=== PATIENT | male | born 1980 | race Two or more races ===

== ENCOUNTER 2018-06-02 10:14 | Inpatient (IN) | payer OTHER ==
[2018-06-02 10:20] VITALS: BMI 27.8
--- NOTE | 2018-06-02 11:32 | HP ---
CIWA Score Nausea/Vomitin Muscle Tremors: 2 Anxiety: 2 Agitation: 2 Paroxysmal Sweats: 1-Minimal Palms Moist Orientation: 0-Oriented Tacttile Disturbances: 1-Very Mild Itch/Numbness Auditory Disturbances: 1-Very Mild Visual Disturbances: 0-None Headache: 2-Mild CIWA-Ar Total Score: 13 - Admission Criteria [facility]ASAS Guidelines: Admission for Medically Managed Detox: Requires at least one of the followin. CIWA greater than 12 2. Seizures within the past 24 hours 3. Delirium tremens within the past 24 hours 4. Hallucinations within the past 24 hours 5. Acute intervention needed for co occurring medical disorder 6. Acute intervention needed for co occurring psychiatric disorder 7. Severe withdrawal that cannot be handled at a lower level of care (continued vomiting, continued diarrhea, abnormal vital signs) requiring intravenous medication and/or fluids 8. Patient presents the following: CIWA greater than 12 Admission Criteria Met: Admission criteria met Admission ROS S - [facility] Chief Complaint: i need help to stop using alcohol,heroin abused,cocaine and marijuana Allergies/Adverse Reactions: Allergies Allergy/AdvReac Type Severity Reaction Status Date / Time haloperidol [From Haldol] Allergy Severe Verified 06/02/18 11:24 olanzapine [From Zyprexa] Allergy Severe Verified 06/02/18 11:24 History of Present Illness: this 28 years old male with alcohol dependence,heroin abused,cocaine and marijuana dependence,seeking detox,withdrawal symptom, last seen in [facility] er last night last detox [facility] in 05/01 multiple admissions in detox nicotine dependence 10 cigarette/day bipolar 1 disorder old fx left femur in 2007 longest period of sobriety 3 years low back pain plan for rehab after detox Exam Limitations: No Limitations - Ebola screening Have you traveled outside of the country in the last 21 days: No Have you had contact with anyone from an Ebola affected area: No Have you been sick,other than usual withdrawal symptoms: No - Review of Systems Constitutional: Chills, Loss of Appetite, Malaise, Night Sweats, Changes in sleep, Weakness EENT: reports: Tearing, Nose Congestion Respiratory: reports: No Symptoms reported Cardiac: reports: No Symptoms Reported GI: reports: Nausea, Poor Appetite, Vomiting, Abdominal cramping : reports: No Symptoms Reported Musculoskeletal: reports: Back Pain, Joint Pain, Muscle Pain, Joint Stiffness Integumentary: reports: Dryness Neuro: reports: Headache, Tremors Endocrine: reports: No Symptoms Reported Hematology: reports: No Symptoms Reported Psychiatric: reports: No Sypmtoms Reported, Judgement Intact, Mood/Affect Appropiate, Orientated x3, other (bipolar disorder) Other Systems: Reviewed and Negative Patient History - Patient Medical History Hx Anemia: No Hx Asthma: No Hx Chronic Obstructive Pulmonary Disease (COPD): No Hx Cancer: No Hx Cardiac Disorders: No Hx Congestive Heart Failure: No Hx Hypertension: No Hx Hypercholesterolemia: No Hx Pacemaker: No HX Cerebrovascular Accident: No Hx Seizures: No Hx Dementia: No Hx Diabetes: No Hx Liver Disease: No Hx Genitourinary Disorders: No Hx Sexually Transmitted Disorders: No Hx Renal Disease (ESRD): No Hx Thyroid Disease: No Hx Human Immunodeficiency Virus (HIV): No (last 06/01 negative) Hx Hepatitis C: No Hx Depression: No Hx Suicide Attempt: No Hx Bipolar Disorder: Yes (onmeds) Hx Schizophrenia: No Other Medical History: no suicidal,no homicidal - Patient Surgical History Past Surgical History: No - PPD History Previous Implant?: Yes Documented Results: Negative w/o proof Implanted On Prior [facility] Admission?: No PPD to be Administered?: Yes - Smoking Cessation Smoking history: Current every day smoker Have you smoked in the past 12 months: Yes Aproximately how many cigarettes per day: 10 Cigars Per Day: 0 Hx Chewing Tobacco Use: No Initiated information on smoking cessation: Yes 'Breaking Loose' booklet given: 06/02/18 - Substance & Tx. History Hx Alcohol Use: Yes Hx Substance Use: Yes Substance Use Type: Alcohol, Cocaine, Heroin, Marijuana Hx Substance Use Treatment: Yes ([facility] 05/01) - Substances Abused Alcohol Route: Oral Frequency: Daily Amount used: 8-9 24 OZ MALT LIQUOR Age of first use: 15 Date of Last Use: 06/02/18 Cocaine Route: Injection Frequency: 1-2 times per week Amount used: $100 Age of first use: 21 Date of Last Use: 06/01/18 Heroin Route: Injection Frequency: 3-6 times per week Amount used: 2 BAGS Age of first use: 38 Date of Last Use: 05/30/18 Family Disease History - Family Disease History Family History: Denies Admission Physical Exam [facility] - Vital Signs Vital Signs: Vital Signs - 24 hr 02/20/19 10:18 Temperature 97.3 F L Pulse Rate 88 Respiratory 20 Rate Blood Pressure 132/76 - Physical General Appearance: Yes: Moderate Distress, Tremorous, Irritable, Sweating, Anxious HEENTM: Yes: Normal ENT Inspection, NERY, Pharynx Normal, Other (laceration of right face with stitches) Respiratory: Yes: Lungs Clear, Normal Breath Sounds, No Respiratory Distress Neck: Yes: Within Normal Limits, Supple, Trachea in good position Breast: Yes: Within Normal Limits Cardiology: Yes: Within Normal Limits, Regular Rhythm, Regular Rate, S1, S2 Abdominal: Yes: Within Normal Limits, Normal Bowel Sounds, Non Tender, Flat, Soft Genitourinary: Yes: Within Normal Limits Back: Yes: Muscle Spasm Musculoskeletal: Yes: full range of Motion, Back pain, Muscle Pain Extremities: Yes: Within Normal Limits, Normal Range of Motion, Tremors 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 NML intact, Fully Oriented, Alert, Motor Strength 5/5 Integumentary: Yes: Dry Lymphatic: Yes: Within Normal Limits - Diagnostic (1) Alcohol dependence with uncomplicated withdrawal Current Visit: Yes Status: Acute (2) Heroin abuse Current Visit: Yes Status: Acute (3) Cocaine dependence Current Visit: Yes Status: Acute (4) Cannabis dependence Current Visit: Yes Status: Acute (5) Bipolar disorder Current Visit: Yes Status: Acute (6) Nicotine dependence Current Visit: Yes Status: Acute (7) Laceration of face Current Visit: Yes Status: Acute Cleared for Admission [facility] - Detox or Rehab [facility] Level of Care: Medically Managed Detox Regimen/Protocol: Librium [facility] Breath Alcohol Content Breath Alcohol Content: 0.010 Urine Drug Screen - Results Drug Screen Negative: No Urine Drug Screen Results: THC-Marijuana, JOCELINE-Cocaine, BZO-Benzodiazepines, MTD- Methadone Inpatient Rehab Admission - Rehab Decision to Admit Inpatient rehab admission?: No
[2018-06-02] MEDS ORDERED: MAGNESIUM CITRATE 300 ML BOTTLE PO PRN (11:45)
[2018-06-02] MEDS ORDERED: MENTHOL/PHENOL 1 EACH UD MM PRN (11:45)
[2018-06-02] MEDS ORDERED: MAGNESIUM HYDROX 2400MG/30ML ORAL SUSPENSION 30 ML CUP PO PRN (11:45)
[2018-06-02] MEDS ORDERED: P-EPHED 60MG/TRIPROLIDI 2.5MG TABLET PO PRN (11:45)
[2018-06-02] MEDS ORDERED: guaiFENesin/D-METHORPHAN HB 10 ML UNIT-DOSE CUPS PO PRN (11:45)
[2018-06-02] MEDS ORDERED: NICOTINE POLACRILEX 2 MG GUM BC PRN (11:45)
[2018-06-02] MEDS ORDERED: hydrOXYzine PAMOATE 25 MG CAPSULE (FP) PO PRN (11:45)
[2018-06-02] MEDS ORDERED: chlordiazePOXIDE HCL 25 MG CAPSULE PO PRN (11:45)
[2018-06-02] MEDS ORDERED: MAG HYDROX/AL HYDROX/SIMETH 30 ML UNIT-DOSE CUP PO PRN (11:45)
[2018-06-02] MEDS ORDERED: LOPERAMIDE HCL 2 MG CAPSULE PO PRN (11:45)
[2018-06-02] MEDS ORDERED: ACETAMINOPHEN 325 MG TABLET (FP) PO PRN (11:45)
[2018-06-02] MEDS: CYCLOBENZAPRINE HCL 10 MG TABLET (FP) PO PRN ×2 (13:11→22:21)
[2018-06-02] MEDS: chlordiazePOXIDE HCL 25 MG CAPSULE PO SCH ×2 (17:53→22:21)
[2018-06-02] MEDS: IBUPROFEN 400 MG TABLET (FP) PO PRN (17:57)
[2018-06-02 20:53] LABS: URINE APPEARANCE TURBID; URINE BILIRUBIN NEGATIVE (<2.0 mg/dL); URINE COLOR YELLOW; URINE GLUCOSE (UA) NEGATIVE (NEGATIVE); URINE KETONE NEGATIVE (NEGATIVE); URINE LEUK ESTERASE NEGATIVE (NEGATIVE); URINE NITRITE NEGATIVE (NEGATIVE); URINE PROTEIN 1+ (NEGATIVE); URINE UROBILINOGEN NEGATIVE mg/dL (0.2-1.0)
[2018-06-02 21:08] LABS: EPI CELLS RARE /HPF (FEW); URINE BACTERIA RARE /hpf (NONE SEEN); URINE MUCUS FEW
[2018-06-02] MEDS: cloNIDine HCL 0.1 MG TABLET PO SCH (22:21)
[2018-06-02] MEDS: MELATONIN 5 MG TABLETS PO PRN (22:21)
[2018-06-02] MEDS: THIAMINE HCL 100 MG TABLET (FP) PO SCH (22:21)
--- NOTE | 2018-06-03 02:33 | EKG ---
Test Reason : Blood Pressure : / mmHG Vent. Rate : 074 BPM Atrial Rate : 074 BPM P-R Int : 124 ms QRS Dur : 086 ms QT Int : 388 ms P-R-T Axes : -01 -25 043 degrees QTc Int : 430 ms NORMAL SINUS RHYTHM NORMAL ECG NO PREVIOUS ECGS AVAILABLE Confirmed by PARTHA SHELL MD ([id number]) on 06/03/2018 2:33:26 AM Referred By: CHECO CÁRDENAS Confirmed By:PARTHA SHELL MD
[2018-06-03] MEDS: chlordiazePOXIDE HCL 25 MG CAPSULE PO SCH ×4 (05:16→22:12)
--- NOTE | 2018-06-03 09:10 | CONSULT ---
[facility] Psychiatric Consult - Data Date of interview: 06/03/18 Admission source: [facility] Identifying data: This is a 28 years old male, single father of one, homeless, unemployed, on PA support, with history of Bipolar Disorder, with psychiatric hospitalization hisatory, with alcohol dependence,heroin abused,cocaine and marijuana dependence,is reporting withdrawal symptoms and seeking detox, Substance Abuse History: Smoking history: Current every day smoker. Have you smoked in the past 12 months: Yes. Aproximately how many cigarettes per day: 10. Cigars Per Day: 0. Hx Chewing Tobacco Use: No. Initiated information on smoking cessation: Yes. 'Breaking Loose' booklet given: 06/02/18. - Substance & Tx. History. Hx Alcohol Use: Yes. Hx Substance Use: Yes. Substance Use Type : Alcohol, Cocaine, Heroin, Marijuana. Hx Substance Use Treatment: Yes ([facility] 05/01). - Substances Abused. Alcohol. Route: Oral. Frequency: Daily. Amount used: 8-9 24 OZ MALT LIQUOR. Age of first use: 15. Date of Last Use: 06/02/18. Cocaine. Route: Injection. Frequency: 1-2 times per week. Amount used: $100. Age of first use: 21. Date of Last Use: 06/01/18. * * Heroin. Route: Injection. Frequency: 3-6 times per week. Amount used: 2 BAGS. Age of first use: 38. Date of Last Use: 05/30/18 Medical History: LBP, History of L. Femoral fracture Psychiatric History: Patient reports history of Bipolar Disorder with the most recent psychiatric admission on about 5 years ago, denies suicidal and homicdial history, reports currently stable on: Lamictal 150mg poqd. Prozac 60mg poqd. Seroquel 200mg po qhs Physical/Sexual Abuse/Trauma History: Denies Additional Comment: Lamictal 150mg poqd. Prozac 60mg poqd. Seroquel 200mg po qhs Mental Status Exam - Mental Status Exam Alert and Oriented to: Person Cognitive Function: Fair Patient Appearance: Well Groomed Mood: Apprehensive Affect: Mood Congruent Patient Behavior: Cooperative Speech Pattern: Appropriate Voice Loudness: Normal Thought Process: Goal Oriented Thought Disorder: Being Controlled Hallucinations: Denies Suicidal Ideation: Denies Homicidal Ideation: Denies Insight/Judgement: Fair Sleep: Difficulty falling asleep Appetite: Fair Muscle strength/Tone: Normal Gait/Station: Normal Additional Comments: Lamictal 150mg poqd. Prozac 60mg poqd. Seroquel 200mg po qhs Psychiatric Findings - Problem List ([place] 1, 2,3) (1) Drug-induced mood disorder Current Visit: Yes Status: Acute (2) Alcohol dependence with uncomplicated withdrawal Current Visit: Yes Status: Acute (3) Bipolar disorder Current Visit: Yes Status: Acute (4) Cannabis dependence Current Visit: Yes Status: Acute (5) Cocaine dependence Current Visit: Yes Status: Acute (6) Heroin abuse Current Visit: Yes Status: Acute (7) Nicotine dependence Current Visit: Yes Status: Acute - Initial Treatment Plan Initial Treatment Plan: Lamictal 150mg poqd. Prozac 60mg poqd. Seroquel 200mg po qhs
[2018-06-03] MEDS ORDERED: PATIENT'S OWN MEDICATION (NON-FORMULARY) (Lamotrigine [Lamictal] 150 MG) PO SCH (10:00)
[2018-06-03] MEDS ORDERED: LAMOTRIGINE 100 MG, LAMOTRIGINE 50 MG PO ONE (10:15)
[2018-06-03] MEDS: cloNIDine HCL 0.1 MG TABLET PO SCH ×2 (10:34→22:15)
[2018-06-03] MEDS: PRENATAL VITAMINS W/ FOLIC ACID TABLET (FP) PO SCH (10:34)
[2018-06-03 10:39] LABS: HEMATOCRIT 46.5 % (35.4-49); HEMOGLOBIN 15.5 GM/dL (11.7-16.9); MCH 29.5 pg (25.7-33.7); MCHC 33.3 g/dl (32.0-35.9); MEAN CELL VOLUME 88.5 fl (80-96); PLATELET COUNT 314 K/MM3 (134-434); RBC 5.26 M/mm3 (4.00-5.60); RDW 14.1 % (11.9-15.9); WHITE BLOOD COUNT 8.3 K/mm3 (4.0-10.0)
[2018-06-03] MEDS: NICOTINE 21 MG/24 HOURS TOPICAL PATCH TD SCH (11:00)
[2018-06-03 11:44] LABS: ALBUMIN 4.6 g/dl (3.4-5.0); ALK PHOS 76 U/L (45-117); ANION GAP 6 MMOL/L (8-16); BILIRUBIN,TOTAL 0.5 mg/dL (0.2-1); BLOOD UREA NITROGEN 11 mg/dL (7-18); CALCIUM 9.4 mg/dL (8.5-10.1); CHLORIDE 104 mmol/L (98-107); CO2 28 mmol/L (21-32); CREATININE 0.8 mg/dL (0.55-1.3); GLUCOSE,RANDOM 74 mg/dL (74-106); POTASSIUM 4.2 mmol/L (3.5-5.1); SGOT/AST 21 U/L (15-37); SGPT/ALT 32 U/L (13-61); SODIUM 139 mmol/L (136-145)
[2018-06-03] MEDS: FLUoxetine HCL 20 MG CAPSULE (FP) PO SCH (12:13)
--- NOTE | 2018-06-03 12:52 | PN ---
[facility] CIWA - CIWA Score Nausea/Vomitin-No Nausea/No Vomiting Muscle Tremors: 4-Moderate,w/Arms Extend Anxiety: 4-Mod. Anxious/Guarded Agitation: 4-Moderately Restless Paroxysmal Sweats: 3 Orientation: 0-Oriented Tacttile Disturbances: 0-None Auditory Disturbances: 1-Very Mild Visual Disturbances: 1-Very Mild Sensitivity Headache: 0-None Present CIWA-Ar Total Score: 17 B[facility] Progress Note (SOAP) Subjective: Sweating, Tremors, Anxious. Objective: PATIENT A & O X 3, OBSERVED AMBULATING ON UNIT. IN NO ACUTE DISTRESS. 06/03/18 12:49 Vital Signs Temperature 97.9 F 06/03/18 09:16 Pulse Rate 79 06/03/18 09:16 Respiratory Rate 16 06/03/18 09:16 Blood Pressure 122/72 06/03/18 09:16 O2 Sat by Pulse Oximetry (%) Laboratory Tests 06/02/18 06/02/18 06/03/18 06:24 18:59 06:24 WBC 8.3 RBC 5.26 Hgb 15.5 Hct 46.5 MCV 88.5 MCH 29.5 MCHC 33.3 RDW 14.1 Plt Count 314 MPV 7.0 L Sodium Potassium Chloride Carbon Dioxide Anion Gap BUN Creatinine Creat Clearance w eGFR Random Glucose Calcium Total Bilirubin AST ALT Alkaline Phosphatase Total Protein Albumin Urine Color Yellow Urine Appearance Turbid Urine pH 5.0 Ur Specific [place] 1.029 Urine Protein 1+ H Urine Glucose (UA) Negative Urine Ketones Negative Urine Blood Negative Urine Nitrite Negative Urine Bilirubin Negative Urine Urobilinogen Negative Ur Leukocyte Esterase Negative Urine WBC (Auto) 4 Urine RBC (Auto) 5 Ur Epithelial Cells Rare Urine Bacteria Rare Urine Mucus Few RPR Titer HIV 1&2 Antibody Screen Negative HIV P24 Antigen Negative 06/03/18 06/03/18 06:24 06:24 WBC RBC Hgb Hct MCV MCH MCHC RDW Plt Count MPV Sodium 139 Potassium 4.2 Chloride 104 Carbon Dioxide 28 Anion Gap 6 L BUN 11 Creatinine 0.8 Creat Clearance w eGFR > 60 Random Glucose 74 Calcium 9.4 Total Bilirubin 0.5 AST 21 ALT 32 Alkaline Phosphatase 76 Total Protein 8.0 Albumin 4.6 Urine Color Urine Appearance Urine pH Ur Specific [place] Urine Protein Urine Glucose (UA) Urine Ketones Urine Blood Urine Nitrite Urine Bilirubin Urine Urobilinogen Ur Leukocyte Esterase Urine WBC (Auto) Urine RBC (Auto) Ur Epithelial Cells Urine Bacteria Urine Mucus RPR Titer Nonreactive HIV 1&2 Antibody Screen HIV P24 Antigen LABS NOTED. 06/03/18 12:51 Assessment: 06/03/18 12:50 WITHDRAWAL SYMPTOMS. Plan: CONTINUE DETOX.
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
[2018-06-03] MEDS: CYCLOBENZAPRINE HCL 10 MG TABLET (FP) PO PRN (17:26)
[2018-06-03] MEDS: IBUPROFEN 400 MG TABLET (FP) PO PRN (19:57)
[2018-06-03] MEDS: MELATONIN 5 MG TABLETS PO PRN (22:13)
[2018-06-03] MEDS: THIAMINE HCL 100 MG TABLET (FP) PO SCH (22:13)
[2018-06-03] MEDS: QUEtiapine FUMARATE 200 MG TABLET PO SCH (22:13)
[2018-06-04] MEDS: chlordiazePOXIDE HCL 25 MG CAPSULE PO SCH ×2 (05:30→10:32)
[2018-06-04] MEDS: CYCLOBENZAPRINE HCL 10 MG TABLET (FP) PO PRN ×2 (05:31→22:47)
[2018-06-04] MEDS: FLUoxetine HCL 20 MG CAPSULE (FP) PO SCH (10:32)
[2018-06-04] MEDS: cloNIDine HCL 0.1 MG TABLET PO SCH ×2 (10:32→22:47)
[2018-06-04] MEDS: PRENATAL VITAMINS W/ FOLIC ACID TABLET (FP) PO SCH (10:32)
[2018-06-04] MEDS: NICOTINE 21 MG/24 HOURS TOPICAL PATCH TD SCH (10:33)
[2018-06-04] MEDS: LAMOTRIGINE 100 MG, LAMOTRIGINE 50 MG PO SCH (10:34)
--- NOTE | 2018-06-04 11:28 | PN ---
S CIWA - CIWA Score Nausea/Vomitin Muscle Tremors: 2 Anxiety: 2 Agitation: 1-Slight > Activity Paroxysmal Sweats: 2 Orientation: 0-Oriented Tacttile Disturbances: 1-Very Mild Itch/Numbness Auditory Disturbances: 0-None Visual Disturbances: 0-None Headache: 0-None Present CIWA-Ar Total Score: 10 S Progress Note (SOAP) Subjective: interrupted sleep, sweats, , lbp Objective: 06/04/18 11:24 pt aox3 lying in bed in nad rt face , sutures in place no redness, w/o d/c or swelling 06/04/18 11:29 Vital Signs Temperature 97.0 F L 06/04/18 08:48 Pulse Rate 81 06/04/18 08:48 Respiratory Rate 18 06/04/18 08:48 Blood Pressure 115/64 06/04/18 08:48 O2 Sat by Pulse Oximetry (%) Laboratory Tests 06/02/18 06/02/18 06/03/18 06:24 18:59 06:24 WBC 8.3 RBC 5.26 Hgb 15.5 Hct 46.5 MCV 88.5 MCH 29.5 MCHC 33.3 RDW 14.1 Plt Count 314 MPV 7.0 L Sodium Potassium Chloride Carbon Dioxide Anion Gap BUN Creatinine Creat Clearance w eGFR Random Glucose Calcium Total Bilirubin AST ALT Alkaline Phosphatase Total Protein Albumin Urine Color Yellow Urine Appearance Turbid Urine pH 5.0 Ur Specific [place] 1.029 Urine Protein 1+ H Urine Glucose (UA) Negative Urine Ketones Negative Urine Blood Negative Urine Nitrite Negative Urine Bilirubin Negative Urine Urobilinogen Negative Ur Leukocyte Esterase Negative Urine WBC (Auto) 4 Urine RBC (Auto) 5 Ur Epithelial Cells Rare Urine Bacteria Rare Urine Mucus Few RPR Titer HIV 1&2 Antibody Screen Negative HIV P24 Antigen Negative 06/03/18 06/03/18 06:24 06:24 WBC RBC Hgb Hct MCV MCH MCHC RDW Plt Count MPV Sodium 139 Potassium 4.2 Chloride 104 Carbon Dioxide 28 Anion Gap 6 L BUN 11 Creatinine 0.8 Creat Clearance w eGFR > 60 Random Glucose 74 Calcium 9.4 Total Bilirubin 0.5 AST 21 ALT 32 Alkaline Phosphatase 76 Total Protein 8.0 Albumin 4.6 Urine Color Urine Appearance Urine pH Ur Specific [place] Urine Protein Urine Glucose (UA) Urine Ketones Urine Blood Urine Nitrite Urine Bilirubin Urine Urobilinogen Ur Leukocyte Esterase Urine WBC (Auto) Urine RBC (Auto) Ur Epithelial Cells Urine Bacteria Urine Mucus RPR Titer Nonreactive HIV 1&2 Antibody Screen HIV P24 Antigen Assessment: 06/04/18 11:25 withdrawal sx's lbp facial sutures on rt Plan: cont. detox increase fluids cont. analgesia for lbp
[2018-06-04] MEDS: chlordiazePOXIDE 5 MG CAPSULE PO SCH ×2 (17:17→22:47)
[2018-06-04] MEDS: IBUPROFEN 400 MG TABLET (FP) PO PRN (19:18)
[2018-06-04] MEDS: QUEtiapine FUMARATE 200 MG TABLET PO SCH (22:47)
[2018-06-04] MEDS: THIAMINE HCL 100 MG TABLET (FP) PO SCH (22:47)
[2018-06-05] MEDS: chlordiazePOXIDE 5 MG CAPSULE PO SCH ×2 (05:36→10:28)
[2018-06-05] MEDS: LAMOTRIGINE 100 MG, LAMOTRIGINE 50 MG PO SCH (10:27)
[2018-06-05] MEDS: FLUoxetine HCL 20 MG CAPSULE (FP) PO SCH (10:27)
[2018-06-05] MEDS: cloNIDine HCL 0.1 MG TABLET PO SCH ×2 (10:27→22:07)
[2018-06-05] MEDS: PRENATAL VITAMINS W/ FOLIC ACID TABLET (FP) PO SCH (10:27)
[2018-06-05] MEDS: NICOTINE 21 MG/24 HOURS TOPICAL PATCH TD SCH (10:28)
--- NOTE | 2018-06-05 13:08 | PN ---
[facility] Progress Note (SOAP) Subjective: C/O SLIGHT ANXIETY OTHERWISE W/S RESOLVING. SCHEDULED TO D/C IN A.M AND WANTS TO LEAVE AT 8:00 TOMORROW MORNING. Objective: 06/05/18 13:07 Vital Signs - 24 hr 06/04/18 06/04/18 06/04/18 13:40 17:34 22:00 Temperature 98.2 F 98.1 F 97.8 F Pulse Rate 84 81 75 Respiratory 16 18 18 Rate Blood Pressure 140/67 136/66 151/94 06/05/18 06/05/18 06/05/18 00:30 03:30 06:00 Temperature 97.7 F Pulse Rate 67 Respiratory 17 18 18 Rate Blood Pressure 123/62 06/05/18 09:57 Temperature 97.2 F L Pulse Rate 75 Respiratory 18 Rate Blood Pressure 121/70 Laboratory Tests 06/02/18 06/02/18 06/03/18 06:24 18:59 06:24 WBC 8.3 RBC 5.26 Hgb 15.5 Hct 46.5 MCV 88.5 MCH 29.5 MCHC 33.3 RDW 14.1 Plt Count 314 MPV 7.0 L Sodium Potassium Chloride Carbon Dioxide Anion Gap BUN Creatinine Creat Clearance w eGFR Random Glucose Calcium Total Bilirubin AST ALT Alkaline Phosphatase Total Protein Albumin Urine Color Yellow Urine Appearance Turbid Urine pH 5.0 Ur Specific [place] 1.029 Urine Protein 1+ H Urine Glucose (UA) Negative Urine Ketones Negative Urine Blood Negative Urine Nitrite Negative Urine Bilirubin Negative Urine Urobilinogen Negative Ur Leukocyte Esterase Negative Urine WBC (Auto) 4 Urine RBC (Auto) 5 Ur Epithelial Cells Rare Urine Bacteria Rare Urine Mucus Few RPR Titer HIV 1&2 Antibody Screen Negative HIV P24 Antigen Negative 06/03/18 06/03/18 06:24 06:24 WBC RBC Hgb Hct MCV MCH MCHC RDW Plt Count MPV Sodium 139 Potassium 4.2 Chloride 104 Carbon Dioxide 28 Anion Gap 6 L BUN 11 Creatinine 0.8 Creat Clearance w eGFR > 60 Random Glucose 74 Calcium 9.4 Total Bilirubin 0.5 AST 21 ALT 32 Alkaline Phosphatase 76 Total Protein 8.0 Albumin 4.6 Urine Color Urine Appearance Urine pH Ur Specific [place] Urine Protein Urine Glucose (UA) Urine Ketones Urine Blood Urine Nitrite Urine Bilirubin Urine Urobilinogen Ur Leukocyte Esterase Urine WBC (Auto) Urine RBC (Auto) Ur Epithelial Cells Urine Bacteria Urine Mucus RPR Titer Nonreactive HIV 1&2 Antibody Screen HIV P24 Antigen Assessment: 06/05/18 13:07 DECREASED WITHDRAWAL SX Plan: CONTINUE DETOX
[2018-06-05] MEDS: chlordiazePOXIDE HCL 10 MG CAPSULE PO SCH ×2 (18:59→22:07)
[2018-06-05] MEDS: THIAMINE HCL 100 MG TABLET (FP) PO SCH (22:06)
[2018-06-05] MEDS: QUEtiapine FUMARATE 200 MG TABLET PO SCH (22:06)
[2018-06-05] MEDS: MELATONIN 5 MG TABLETS PO PRN (22:08)
[2018-06-06] MEDS: chlordiazePOXIDE HCL 10 MG CAPSULE PO SCH (05:51)
[2018-06-06 06:19] VITALS: BP 106/60; PULSE 66; TEMP 96.3
--- NOTE | 2018-06-06 12:16 | DS ---
[facility] Detox Discharge Summary Admission Date: 06/02/18 Discharge Date: 06/06/18 - History Present History: Alcohol Dependence, Cannabis Dependence, Cocaine Dependence, Opioid Dependence Additional Comments: Patient completed detox successfully and for discharge today. Patient is A/A/Ox3 , in nad, vss, ambulatory. Patient instructed to follow up with his PCP within 1 -2 weeks. Pertinent Past History: Alcohol dependence Cocaine use disorder Cannabis use disorder Opioid dependence Nicotine dependence Bipolar disorder - Physical Exam Results Vital Signs: Vital Signs Temperature 96.3 F L 06/06/18 06:00 Pulse Rate 66 06/06/18 06:00 Respiratory Rate 18 06/06/18 06:00 Blood Pressure 106/60 06/06/18 06:00 O2 Sat by Pulse Oximetry (%) Pertinent Admission Physical Exam Findings: Withdrawal symptoms Laboratory Tests 06/02/18 06/02/18 06/03/18 06:24 18:59 06:24 WBC 8.3 RBC 5.26 Hgb 15.5 Hct 46.5 MCV 88.5 MCH 29.5 MCHC 33.3 RDW 14.1 Plt Count 314 MPV 7.0 L Sodium Potassium Chloride Carbon Dioxide Anion Gap BUN Creatinine Creat Clearance w eGFR Random Glucose Calcium Total Bilirubin AST ALT Alkaline Phosphatase Total Protein Albumin Urine Color Yellow Urine Appearance Turbid Urine pH 5.[address] [place] 1.029 Urine Protein 1+ H Urine Glucose (UA) Negative Urine Ketones Negative Urine Blood Negative Urine Nitrite Negative Urine Bilirubin Negative Urine Urobilinogen Negative Ur Leukocyte Esterase Negative Urine WBC (Auto) 4 Urine RBC (Auto) 5 Ur Epithelial Cells Rare Urine Bacteria Rare Urine Mucus Few RPR Titer HIV 1&2 Antibody Screen Negative HIV P24 Antigen Negative 06/03/18 06/03/18 06:24 06:24 WBC RBC Hgb Hct MCV MCH MCHC RDW Plt Count MPV Sodium 139 Potassium 4.2 Chloride 104 Carbon Dioxide 28 Anion Gap 6 L BUN 11 Creatinine 0.8 Creat Clearance w eGFR > 60 Random Glucose 74 Calcium 9.4 Total Bilirubin 0.5 AST 21 ALT 32 Alkaline Phosphatase 76 Total Protein 8.0 Albumin 4.6 Urine Color Urine Appearance Urine pH Ur Specific [place] Urine Protein Urine Glucose (UA) Urine Ketones Urine Blood Urine Nitrite Urine Bilirubin Urine Urobilinogen Ur Leukocyte Esterase Urine WBC (Auto) Urine RBC (Auto) Ur Epithelial Cells Urine Bacteria Urine Mucus RPR Titer Nonreactive HIV 1&2 Antibody Screen HIV P24 Antigen Labs reviewed: UA shows 1+ protein, encourage PO water hydration, follow up with PCP - Treatment Hospital Course: Detox Protocol Followed, Detoxed Safely, Responded well, Discharged Condition Good - Medication Discharge Medications: Ambulatory Orders Quetiapine Fumarate [Seroquel -] 200 mg PO HS 06/02/18 Fluoxetine HCl [Prozac -] 60 mg PO DAILY #30 capsule 06/03/18 Lamotrigine [Lamictal] 150 mg PO DAILY #30 tablet 06/03/18 Quetiapine Fumarate [Seroquel -] 200 mg PO HS #30 tablet 06/03/18 - Diagnosis (1) Opioid dependence, uncomplicated Status: Acute (2) Cannabis use disorder, mild, abuse Status: Chronic (3) Cocaine use disorder Status: Chronic (4) Alcohol dependence with uncomplicated withdrawal Status: Acute (5) Bipolar disorder Status: Chronic (6) Nicotine dependence Status: Chronic (7) Proteinuria Status: Acute - AMA Did Patient Leave Against Medical Advice: No (Follow up with PCP within 1-2 weeks)
== END 2018-06-06 09:45 | disposition home or self-care (01) | DRG 773 ==
LOC: YASAS 10:14 → Y6N 12:17
PROVIDERS: ADMIT Surgery; ATTEND Surgery
PROC: HZ2ZZZZ Detoxification Services for Substance Abuse Treatment (ICD-10-PCS; principal; 2018-06-02)
DX: F10.230 Alcohol dependence with withdrawal, uncomplicated (principal); F11.20 Opioid dependence, uncomplicated; F14.20 Cocaine dependence, uncomplicated; F12.20 Cannabis dependence, uncomplicated; F17.210 Nicotine dependence, cigarettes, uncomplicated; F19.24 Other psychoactive substance dependence with psychoactive substance-induced mood disorder; F31.9 Bipolar disorder, unspecified; R80.9 Proteinuria, unspecified; M54.5 Low back pain; Z88.8 Allergy status to other drugs, medicaments and biological substances; Z59.0 Homelessness
CPT/HCPCS: 36415; 80053; 81003; 81015; 85027; 86593; 87389; 93005; 93010; J0735